=== PATIENT | female | born 1950 | race Caucasian/White ===

== ENCOUNTER 2019-01-05 09:59 | Outpatient (CLI) | payer MEDICARE, OTHER ==
[~2019-01-05] VITALS: Ht 157.5 cm; Wt 61.2 kg
[2019-01-05] MEDS ORDERED: METOPROLOL TARTRATE INJ 5 MG/5 ML AMPUL IVP ONE (10:30)
[2019-01-05] MEDS ORDERED: NITROGLYCERIN 0.4 MG/TAB BOTTLE SL ONE (10:30)
[2019-01-05] MEDS ORDERED: IV NS 0.9% 500 ML IV ONE (10:30)
[2019-01-05] MEDS ORDERED: IOHEXOL-350 100 ML VIAL IV ONE (10:33)
[2019-01-05] MEDS ORDERED: METOPROLOL TARTRATE INJ 5 MG/5 ML AMPUL ONE (10:34)
[2019-01-05] MEDS ORDERED: CT SWABBABLE VALVE TRANS SET 1 EA INFUS.SET MC ONE (10:34)
[2019-01-05] MEDS ORDERED: IV NS 0.9% 250 ML IV ONE (10:34)
[2019-01-05 10:45] LABS: CALCIUM, SERUM 9.1 mg/dL (8.5-10.1); CREATININE 0.7 mg/dL (0.6-1.3); POTASSIUM 3.9 mmol/L (3.5-5.1)
== END 2019-01-05 23:59 | disposition home or self-care (01) ==
LOC: CT 09:59
PROVIDERS: ATTEND Internal Medicine Interventional Cardiology
DX: I25.10 Atherosclerotic heart disease of native coronary artery without angina pectoris (principal); I10 Essential (primary) hypertension; M47.814 Spondylosis without myelopathy or radiculopathy, thoracic region
CPT/HCPCS: 36415; 75574; 80048; J7050; Q9967; J3490